=== PATIENT | female | born 1940 | race Caucasian/White ===

== ENCOUNTER → 2016-07-23 | Outpatient (CLI) | payer OTHER ==
[~2016-07-23] VITALS: Ht 167.6 cm; Wt 72.0 kg
[~2016-07-23] MED LIST: ADVIL200 MG PO; AMBIZINE25 MG PO; ASPIRIN PO; ATIVAN0.5 MG PO; Antivert PO; Ativan PO; CALCIUM 600 +1 EA12 PO; CALCIUM 600 +1 EAC3 PO; CRESTOR5 MG PO; Calcium 600 + Vit D PO; DAILY VALUE1 EACH PO; DIOVAN HCT 11 TABLE1 PO; KLOR-CON 1010 ME1 PO; LORAZEPAM0.5 MG PO; LOW DOSE ASPIRI81 M1 PO; LOW DOSE ASPIRI81 M2 PO; LUMIGAN 0.50 DROP/2. BOTH EYES; Levaquin PO; METAMUCIL197.2 GM PO; MULTI VITAMIN1 EACH PO; MULTIVITAMIN1 EAC2 PO; Micro-K,K-Tab,K-Dur, PO; Multivitamins PO; OCUVITE TABLET1 EACH PO; POTASSIUM20 MEQ/11 PO; PROVENTIL,2.5 MG/3 M IH; RECLAST5 MG/100 M IV; SIMBRINZA 1%-0.28 ML LEFT EYE; SPIRIVA1 INHALATI IH; SYMBICORT60 INHALAT IH; TAMIFLU75 MG PO; TOPROL XL50 MG PO; Theragran PO; Toprol XL PO; VENTOLIN HFA18 GM IH; VITAMIN D-32000 UNI2 PO; predniSONE PO
[2016-07-23 09:14] VITALS: BP 163/75
== END | disposition home or self-care (01) ==
LOC: IVINF 09:07
DX: M81.0 Age-related osteoporosis without current pathological fracture (principal); Z88.8 Allergy status to other drugs, medicaments and biological substances
CPT/HCPCS: 96365; J3489

== ENCOUNTER 2016-12-28 18:38 | Inpatient (IN) | payer OTHER ==
[~2016-12-28] VITALS: Ht 170.2 cm; Wt 98.3 kg
[~2016-12-28 18:38] MED LIST changes: +KLOR-CON M1010 MEQ PO; -POTASSIUM20 MEQ/11 PO
[2016-12-28 20:15] LABS: CHLORIDE 102 mEq/L (99-109); POTASSIUM 3.4 mEq/L (3.7-5.4); SODIUM 139 mEq/L (136-147)
[2016-12-28 20:17] LABS: GLUCOSE 111 mg/dL (70-99)
[2016-12-28 20:18] LABS: ANION GAP 11 MEQ/L (2-14)
[2016-12-28 20:21] LABS: GFR ESTIMATE (CALCULATED) > 59 mL/min/
[2016-12-28 20:22] LABS: UREA NITROGEN (BUN) 18 mg/dL (9-23)
[2016-12-28 22:20] LABS: CHLORIDE 101 mEq/L (99-109); POTASSIUM 3.5 mEq/L (3.7-5.4); SODIUM 136 mEq/L (136-147)
[2016-12-28 22:22] LABS: GLUCOSE 110 mg/dL (70-99)
[2016-12-28 22:24] LABS: ANION GAP 9 MEQ/L (2-14); TOTAL BILIRUBIN 1.2 mg/dL (0.0-1.0)
[2016-12-28 22:26] LABS: ALKALINE PHOSPHATASE 86 IU/L (3-129); GFR ESTIMATE (CALCULATED) > 59 mL/min/
[2016-12-28 22:27] LABS: UREA NITROGEN (BUN) 18 mg/dL (9-23)
[2016-12-28 22:32] LABS: TROP-I INTERPRETATION NEGATIVE; TROPONIN-I < 0.01 ng/mL (0.0-0.30)
[2016-12-28] MEDS ORDERED: BREO ELLIPTA I1 EACH IH (22:52)
[2016-12-28] MEDS ORDERED: LUMIGAN 0.50 DROP/22 BOTH EYES (22:53)
[2016-12-28] MEDS ORDERED: PROBIOTIC1 EAC1 PO (22:53)
[2016-12-29] VITALS (8 sets, daily range): BP systolic 137–182; BP diastolic 70–79
[2016-12-29 07:40] LABS: HEMATOCRIT 38.6 % (36.0-46.0); MCH 31.4 PG (29.0-34.0); MCHC 33.2 G/DL (30.0-36.0); MCV 94.6 FL (83-99); MEAN PLAT.VOLUME 10.1 uM^3 (9.5-12.4); PLATELET COUNT 218 K/uL (156-360); RBC DIS.WIDTH-SD 48.1 % (39-53); RED BLOOD COUNT 4.08 M/uL (3.80-5.20); WHITE BLOOD COUNT 7.6 K/uL (4.1-10.2)
[2016-12-29 08:02] LABS: ALKALINE PHOSPHATASE 77 IU/L (3-129); ANION GAP 6 MEQ/L (2-14); CHLORIDE 98 MEQ/L (99-109); GFR ESTIMATE (CALCULATED) > 59 mL/min/; GLUCOSE 110 mg/dL (70-99); POTASSIUM 3.5 MEQ/L (3.7-5.4); SAMPLE HEMOLYSIS CHECK 0; SAMPLE ICTERIC CHECK 0; SAMPLE LIPEMIA CHECK 0; SODIUM 136 MEQ/L (136-147); TOTAL BILIRUBIN 1.2 MG/DL (0.0-1.0); UREA NITROGEN (BUN) 13 mg/dL (9-23)
[2016-12-30 00:46] VITALS: BP 129/60
[2016-12-30 05:11] VITALS: BP 116/57
[2016-12-30 09:12] VITALS: BP 141/69
[2016-12-30 19:38] VITALS: BP 136/63
[2016-12-30 23:41] VITALS: BP 112/54
[2016-12-31 04:40] VITALS: BP 112/57
[2016-12-31 06:03] LABS: HEMATOCRIT 37.7 % (36.0-46.0); MCH 32.3 PG (29.0-34.0); MCV 95.2 FL (83-99); MEAN PLAT.VOLUME 10.3 uM^3 (9.5-12.4); PLATELET COUNT 192 K/uL (156-360); RBC DIS.WIDTH-CV 14.1 % (11.8-14.6); RBC DIS.WIDTH-SD 49.6 % (39-53); RED BLOOD COUNT 3.96 M/uL (3.80-5.20); WHITE BLOOD COUNT 6.9 K/uL (4.1-10.2)
[2016-12-31 08:10] VITALS: BP 144/67
[2016-12-31 12:27] VITALS: BP 141/63
[2016-12-31] MEDS ORDERED: SENNA LAX8.6 MG PO (14:59)
[2016-12-31] MEDS ORDERED: CHLORZOXAZONE500 MG PO (14:59)
[2016-12-31] MEDS ORDERED: OXYCODONE HCL5 MG PO (14:59)
[2016-12-31] MEDS ORDERED: DIAZEPAM5 MG PO (14:59)
== END 2016-12-31 16:03 | disposition home or self-care (01) | DRG 184 ==
LOC: EME → EDBD 18:38 → 3EAST 22:18 → EDOF 22:18 → ENRESERV 22:24 → 3EAST 23:27
PROVIDERS: Emergency Medicine; Surgery
DX: S22.22XA Fracture of body of sternum, initial encounter for closed fracture (principal); G89.11 Acute pain due to trauma; E66.9 Obesity, unspecified; Z68.33 Body mass index [BMI] 33.0-33.9, adult; V43.62XA Car passenger injured in collision with other type car in traffic accident, initial encounter; Y92.481 Parking lot as the place of occurrence of the external cause; I48.91 Unspecified atrial fibrillation; E78.5 Hyperlipidemia, unspecified; J44.9 Chronic obstructive pulmonary disease, unspecified; I10 Essential (primary) hypertension; H40.9 Unspecified glaucoma; F41.9 Anxiety disorder, unspecified; J98.11 Atelectasis; R09.02 Hypoxemia
CPT/HCPCS: 71020; 71260; 80048; 80053; 84484; 85027; 86900; 86901; 93005; 94640; 94640 76; 94667; 94668; 94799; 99202; 99281; 99285; J1170; J1644; J2270; J7030; J7050

== ENCOUNTER → 2017-08-19 | Outpatient (CLI) | payer OTHER ==
[~2017-08-19] VITALS: Ht 167.6 cm; Wt 63.6 kg
[~2017-08-19] MED LIST changes: +BREO ELLIPTA I1 EACH IH; +CALCIUM600 M1 PO; +CHLORZOXAZONE500 MG PO; +DIAZEPAM5 MG PO; +LUMIGAN 0.50 DROP/22 BOTH EYES; +OXYCODONE HCL5 MG PO; +PROBIOTIC1 EAC1 PO; +SENNA LAX8.6 MG PO
[2017-08-19 10:01] VITALS: BP 169/96
== END | disposition home or self-care (01) ==
LOC: IVINF 09:55
DX: M81.0 Age-related osteoporosis without current pathological fracture (principal); Z87.19 Personal history of other diseases of the digestive system
CPT/HCPCS: 96365; J3489